=== PATIENT | female | born 1975 | race Caucasian/White ===

== ENCOUNTER → 2017-11-08 | Outpatient (CLI) | payer OTHER ==
[2017-11-08 11:02] LABS: BASOPHILS % (AUTO) 0.4 % (0.0-2.0); EOSINOPHILS % (AUTO) 0.6 % (0.0-4.0); HEMOGLOBIN 14.2 g/dL (12.0-16.0); LYMPHOCYTES # (AUTO) 2.1 K/uL (1.0-5.5); MEAN CORPUSCULAR HEMOGLOBIN 31 pg (27-31); MEAN CORPUSCULAR HGB CONC 33 % (32-36); MEAN CORPUSCULAR VOLUME 95 fL (79.0-98.0); MONOCYTES # (AUTO) 0.3 K/uL (0.0-1.0); MONOCYTES % (AUTO) 4.4 % (1.7-9.3); NEUTROPHILS # (AUTO) 4.7 K/uL (1.8-7.7); NEUTROPHILS % (AUTO) 65.6 % (40.0-70.0); PLATELET COUNT (AUTO) 261 K/uL (130-430); RED BLOOD CELL COUNT(AUTO) 4.52 MIL/uL (4.2-6.2); RED CELL DISTRIBUTION WIDTH 13.4 % (9.0-15.0); WHITE BLOOD COUNT (AUTO) 7.1 K/uL (4.8-10.8)
[2017-11-08 11:52] LABS: CALCIUM 9.6 mg/dL (8.4-11.0); CREATININE 0.86 mg/dL (0.55-1.30); POTASSIUM 3.9 mmol/L (3.5-5.1)
[2017-11-08 12:10] LABS: THYROID STIMULATING HORMONE 1.68 uIu/mL (0.36-3.74); TOTAL BILIRUBIN 0.5 mg/dL (0.0-1.0)
== END | disposition still patient (30) ==
LOC: SLB 10:26
PROVIDERS: ATTEND General Practice
DX: Z01.419 Encounter for gynecological examination (general) (routine) without abnormal findings (principal); R79.89 Other specified abnormal findings of blood chemistry
CPT/HCPCS: 36415; 80053; 80061; 82306; 84443-TC; 85025

== ENCOUNTER 2019-05-13 17:49 | Outpatient (CLI) | payer OTHER | END 2019-05-13 21:06 | disposition home or self-care (01) | LOC: SLB 17:49 | PROVIDERS: ATTEND Physician Assistant | DX: O26.21 Pregnancy care for patient with recurrent pregnancy loss, first trimester (principal); Z3A.00 Weeks of gestation of pregnancy not specified | CPT/HCPCS: 36415; 84144; 84702-TC ==

== ENCOUNTER 2019-05-15 17:21 | Outpatient (CLI) | payer OTHER | END 2019-05-16 18:04 | disposition home or self-care (01) | LOC: SLB 17:21 | PROVIDERS: ATTEND Specialist | DX: O26.21 Pregnancy care for patient with recurrent pregnancy loss, first trimester (principal); Z3A.00 Weeks of gestation of pregnancy not specified | CPT/HCPCS: 36415; 84144; 84702-TC ==

== ENCOUNTER 2019-05-25 16:22 | Outpatient (CLI) | payer OTHER | END 2019-05-25 21:09 | disposition home or self-care (01) | LOC: SLB 16:22 | PROVIDERS: ATTEND Specialist | DX: N92.6 Irregular menstruation, unspecified (principal) | CPT/HCPCS: 36415; 84144; 84702-TC ==

== ENCOUNTER 2019-05-27 15:56 | Outpatient (CLI) | payer OTHER | END 2019-05-27 20:53 | disposition home or self-care (01) | LOC: SLB 15:56 | PROVIDERS: ATTEND Specialist | DX: N92.6 Irregular menstruation, unspecified (principal) | CPT/HCPCS: 36415; 84144; 84702-TC ==

== ENCOUNTER 2019-10-12 15:32 | Outpatient (CLI) | payer OTHER | END 2019-10-13 20:16 | disposition home or self-care (01) | LOC: SMA 15:32 | PROVIDERS: ATTEND Specialist | DX: Z12.31 Encounter for screening mammogram for malignant neoplasm of breast (principal); N64.89 Other specified disorders of breast | CPT/HCPCS: 77067 ==

== ENCOUNTER 2022-04-17 13:13 | Outpatient (CLI) | payer OTHER | END 2022-04-17 19:03 | disposition home or self-care (01) | LOC: SMA 13:13 | DX: Z12.31 Encounter for screening mammogram for malignant neoplasm of breast (principal) | CPT/HCPCS: 77067 ==

== ENCOUNTER 2022-12-16 14:59 | Emergency (ER) | payer OTHER ==
[~2022-12-16] VITALS: Ht 167.6 cm; Wt 63.5 kg
[2022-12-16 15:07] VITALS: BP_SYST 131
[2022-12-16] MEDS ORDERED: IBUP-1969 PO (16:42)
[2022-12-16] MEDS ORDERED: SOM350 PO (16:42)
[2022-12-16 17:05] VITALS: BP_SYST 131
== END 2022-12-16 17:05 | disposition home or self-care (01) ==
LOC: SED 14:59
DX: S39.012A Strain of muscle, fascia and tendon of lower back, initial encounter (principal); S16.1XXA Strain of muscle, fascia and tendon at neck level, initial encounter; V49.9XXA Car occupant (driver) (passenger) injured in unspecified traffic accident, initial encounter; Y93.89 Activity, other specified; Y92.89 Other specified places as the place of occurrence of the external cause; Y99.8 Other external cause status
CPT/HCPCS: 72040-TC; 72100-TC; 81025; 99284

== ENCOUNTER 2023-10-06 13:00 | Inpatient (IN) | payer OTHER ==
[~2023-10-06] VITALS: Ht 162.6 cm; Wt 105.7 kg
[~2023-10-06 13:00] MED LIST: IBUP-1969 PO; SOM350 PO
[2023-10-06 13:21] VITALS: BP_SYST 121; PULSE 88; RESP 18; TEMP 97.6; O2SAT 97
[2023-10-06 14:21] LABS: BILIRUBIN,URINE NEGATIVE (NEGATIVE); BLOOD, URINE NEGATIVE (NEGATIVE); CLARITY/URINE CLEAR (CLEAR); COLOR,URINE YELLOW (YELLOW); GLUCOSE,URINE NEGATIVE (NEGATIVE); KETONES,URINE TRACE (NEGATIVE); LEUKOCYTE ESTERASE ,URINE NEGATIVE (NEGATIVE); NITRITE, URINE NEGATIVE (NEGATIVE); PROTEIN URINE NEGATIVE (NEGATIVE); UROBILINOGEN,URINE 0.2 (0.2-1.0)
[2023-10-06 14:59] LABS: BASOPHILS % (AUTO) 0.2 % (0.0-2.0); EOSINOPHILS % (AUTO) 0.4 % (0.0-4.0); HEMATOCRIT 39.9 % (36-48); HEMOGLOBIN 13.6 g/dL (12.0-16.0); LYMPHOCYTES # (AUTO) 1.9 K/uL (1.0-5.5); LYMPHOCYTES % (AUTO) 18.2 % (20.5-51.5); MEAN CORPUSCULAR HEMOGLOBIN 31 pg (27-31); MEAN CORPUSCULAR HGB CONC 34 % (32-36); MEAN CORPUSCULAR VOLUME 91 fL (79.0-98.0); MONOCYTES # (AUTO) 0.5 K/uL (0.0-1.0); MONOCYTES % (AUTO) 4.4 % (1.7-9.3); NEUTROPHILS # (AUTO) 8.1 K/uL (1.8-7.7); NEUTROPHILS % (AUTO) 76.8 % (40.0-70.0); PLATELET COUNT (AUTO) 340 K/uL (130-430); RED BLOOD CELL COUNT(AUTO) 4.37 MIL/uL (4.2-6.2); RED CELL DISTRIBUTION WIDTH 14.5 % (9.0-15.0); WHITE BLOOD COUNT (AUTO) 10.5 K/uL (4.8-10.8)
[2023-10-06] MEDS: NACL 0.9% 1,000 ML IV ONE (15:00)
[2023-10-06 15:05] LABS: CALCIUM 9.2 mg/dL (8.4-11.0); CREATININE 0.85 mg/dL (0.55-1.30); POTASSIUM 4.1 mmol/L (3.5-5.1); SERUM HCG (QUALITATIVE) NEGATIVE (NEGATIVE)
[2023-10-06 15:10] LABS: ALBUMIN 3.7 g/dL (3.4-4.8); BILIRUBIN,DIRECT 0.1 mg/dL (0.0-0.3); TOTAL BILIRUBIN 0.4 mg/dL (0.0-1.0); TOTAL PROTEIN, SERUM 7.5 g/dL (6.4-8.3)
[2023-10-06] MEDS: PANTOPRAZOLE SODIUM 40 MG TAB PO ONE (15:36)
[2023-10-06] MEDS ORDERED: MORPHINE 4 MG INJ. 4 MG/ML VIAL IVP PRN (17:45)
[2023-10-06] MEDS: NACL 0.9% 1,000 ML IV SCH (18:54)
[2023-10-06] MEDS: MORPHINE 4 MG INJ. 4 MG/ML VIAL IVP ONE (19:26)
[2023-10-06] MEDS: ONDANSETRON HCL 4 MG/2 ML VIAL IVP ONE (19:27)
[2023-10-06 20:00] VITALS: BP_SYST 125; PULSE 74; RESP 20; TEMP 97.9; O2SAT 96
[2023-10-07] VITALS: PULSE 73; RESP 20
[2023-10-07 04:00] VITALS: RESP 20; O2SAT 97
[2023-10-07 06:11] LABS: BASOPHILS % (AUTO) 0.4 % (0.0-2.0); EOSINOPHILS # (AUTO) 0.2 K/uL (0.0-0.4); EOSINOPHILS % (AUTO) 2.1 % (0.0-4.0); HEMOGLOBIN 11.7 g/dL (12.0-16.0); LYMPHOCYTES # (AUTO) 2.1 K/uL (1.0-5.5); LYMPHOCYTES % (AUTO) 29.5 % (20.5-51.5); MEAN CORPUSCULAR HEMOGLOBIN 31 pg (27-31); MEAN CORPUSCULAR HGB CONC 34 % (32-36); MEAN CORPUSCULAR VOLUME 92 fL (79.0-98.0); MONOCYTES # (AUTO) 0.5 K/uL (0.0-1.0); NEUTROPHILS # (AUTO) 4.3 K/uL (1.8-7.7); PLATELET COUNT (AUTO) 276 K/uL (130-430); RED CELL DISTRIBUTION WIDTH 14.5 % (9.0-15.0)
[2023-10-07 06:13] LABS: CALCIUM 8.3 mg/dL (8.4-11.0); CREATININE 0.69 mg/dL (0.55-1.30); POTASSIUM 3.7 mmol/L (3.5-5.1)
[2023-10-07 06:18] LABS: ALBUMIN 2.9 g/dL (3.4-4.8); TOTAL BILIRUBIN 0.5 mg/dL (0.0-1.0)
[2023-10-07 08:00] VITALS: BP_SYST 121; PULSE 73; RESP 16; TEMP 97.7; O2SAT 98
[2023-10-07] MEDS ORDERED: ONDANSETRON HCL 4 MG/2 ML VIAL IM PRN (10:00)
[2023-10-07] MEDS ORDERED: MORPHINE 2 MG/ML INJ. SYRINGE IVP PRN ×3 (10:00→12:15)
[2023-10-07 12:00] VITALS: BP_SYST 121; PULSE 72; RESP 16; TEMP 98.4; O2SAT 98
[2023-10-07] MEDS ORDERED: MAGNESIUM SULFATE 50 ML IV PRN (12:15)
[2023-10-07] MEDS ORDERED: LORazepam 2 MG/ML VIAL IVP PRN (12:15)
[2023-10-07] MEDS ORDERED: NALOXONE HCL 2 MG/2 ML SYR IVP PRN (12:15)
[2023-10-07] MEDS ORDERED: POTASSIUM CHLORIDE 40 MEQ, LIDOCAINE JECT 2% PF 100 MG 50 MG in NS 250 ML IV PRN (12:15)
[2023-10-07] MEDS ORDERED: ONDANSETRON HCL 4 MG/2 ML VIAL IVP PRN (12:15)
[2023-10-07 13:38] LABS: FREE T4 (FREE THYROXINE) 1.1 ng/dL (0.6-1.6); THYROID STIMULATING HORMONE 1.23 uIu/mL (0.34-4.82)
[2023-10-07 16:00] VITALS: BP_SYST 116; PULSE 76; RESP 16; TEMP 98.4; O2SAT 76
[2023-10-07 20:30] VITALS: BP_SYST 138; PULSE 79; RESP 18; TEMP 98.8; O2SAT 98
[2023-10-08 00:20] VITALS: BP_SYST 112; PULSE 74; RESP 18; TEMP 98.8; O2SAT 98
[2023-10-08 05:26] LABS: BASOPHILS % (AUTO) 0.5 % (0.0-2.0); EOSINOPHILS # (AUTO) 0.1 K/uL (0.0-0.4); EOSINOPHILS % (AUTO) 1.8 % (0.0-4.0); HEMATOCRIT 33.7 % (36-48); HEMOGLOBIN 11.4 g/dL (12.0-16.0); LYMPHOCYTES % (AUTO) 25.8 % (20.5-51.5); MEAN CORPUSCULAR HEMOGLOBIN 31 pg (27-31); MEAN CORPUSCULAR HGB CONC 34 % (32-36); MEAN CORPUSCULAR VOLUME 92 fL (79.0-98.0); MONOCYTES # (AUTO) 0.5 K/uL (0.0-1.0); MONOCYTES % (AUTO) 6.7 % (1.7-9.3); NEUTROPHILS # (AUTO) 5.1 K/uL (1.8-7.7); NEUTROPHILS % (AUTO) 65.2 % (40.0-70.0); PLATELET COUNT (AUTO) 253 K/uL (130-430); RED BLOOD CELL COUNT(AUTO) 3.66 MIL/uL (4.2-6.2); RED CELL DISTRIBUTION WIDTH 14.5 % (9.0-15.0); WHITE BLOOD COUNT (AUTO) 7.7 K/uL (4.8-10.8)
[2023-10-08 05:49] LABS: ALBUMIN 2.6 g/dL (3.4-4.8); CALCIUM 8.1 mg/dL (8.4-11.0); CREATININE 0.63 mg/dL (0.55-1.30); PHOSPHORUS 2.8 mg/dL (2.7-4.5); POTASSIUM 3.8 mmol/L (3.5-5.1); TOTAL BILIRUBIN 0.4 mg/dL (0.0-1.0); TOTAL PROTEIN, SERUM 5.8 g/dL (6.4-8.3)
[2023-10-08 08:00] VITALS: BP_SYST 122; PULSE 76; RESP 16; TEMP 98.6; O2SAT 99
[2023-10-08] MEDS: PANTOPRAZOLE SODIUM 40 MG/VIAL (PROTONIX) IVP SCH (10:26)
[2023-10-08 19:00] VITALS: BP_SYST 122; PULSE 76; RESP 16; TEMP 98.6; O2SAT 98
[2023-10-08 20:20] VITALS: BP_SYST 136; PULSE 82; RESP 18; TEMP 97.7; O2SAT 100
[2023-10-08 21:55] VITALS: O2SAT 100
[2023-10-09 00:20] VITALS: BP_SYST 120; PULSE 81; RESP 18; TEMP 97.6; O2SAT 98
[2023-10-09 05:37] LABS: BASOPHILS % (AUTO) 0.6 % (0.0-2.0); EOSINOPHILS # (AUTO) 0.2 K/uL (0.0-0.4); EOSINOPHILS % (AUTO) 2.5 % (0.0-4.0); HEMATOCRIT 32.5 % (36-48); LYMPHOCYTES # (AUTO) 2.4 K/uL (1.0-5.5); LYMPHOCYTES % (AUTO) 34.8 % (20.5-51.5); MEAN CORPUSCULAR HEMOGLOBIN 31 pg (27-31); MEAN CORPUSCULAR HGB CONC 34 % (32-36); MEAN CORPUSCULAR VOLUME 92 fL (79.0-98.0); MONOCYTES # (AUTO) 0.6 K/uL (0.0-1.0); MONOCYTES % (AUTO) 8.4 % (1.7-9.3); NEUTROPHILS # (AUTO) 3.6 K/uL (1.8-7.7); NEUTROPHILS % (AUTO) 53.7 % (40.0-70.0); PLATELET COUNT (AUTO) 256 K/uL (130-430); RED BLOOD CELL COUNT(AUTO) 3.55 MIL/uL (4.2-6.2); RED CELL DISTRIBUTION WIDTH 14.5 % (9.0-15.0); WHITE BLOOD COUNT (AUTO) 6.8 K/uL (4.8-10.8)
[2023-10-09 06:00] LABS: PROTHROMBIN TIME 10.4 SECS (9.5-12.5)
[2023-10-09 06:12] LABS: ALBUMIN 2.5 g/dL (3.4-4.8); CALCIUM 8.2 mg/dL (8.4-11.0); CREATININE 0.63 mg/dL (0.55-1.30); PHOSPHORUS 2.9 mg/dL (2.7-4.5); POTASSIUM 3.8 mmol/L (3.5-5.1); TOTAL BILIRUBIN 0.3 mg/dL (0.0-1.0); TOTAL PROTEIN, SERUM 5.7 g/dL (6.4-8.3)
[2023-10-09 08:08] VITALS: BP_SYST 115; PULSE 64; RESP 17; TEMP 98.4; O2SAT 100
[2023-10-09 09:22] VITALS: O2SAT 99
[2023-10-09 14:00] VITALS: BP_SYST 118; PULSE 68; RESP 18; TEMP 98.4; O2SAT 98
[2023-10-09] MEDS: MIDAZOLAM HCL 2 MG/2 ML VIAL (VERSED) ONE (14:59)
[2023-10-09] MEDS: HYDROmorphone 2 MG/ML VIAL ONE (15:00)
[2023-10-09] MEDS ORDERED: DEXAMETHASONE SOD PHOSPHATE 4 MG/ML VIAL ONE (15:10)
[2023-10-09] MEDS ORDERED: SUCCINYLCHOLINE CHLORIDE 20 MG/ML(QUELICIN) ONE (15:10)
[2023-10-09] MEDS ORDERED: NEOSTIGMINE METHYLSULFATE 1 MG/ML, 10 ML VIAL ONE (15:10)
[2023-10-09] MEDS ORDERED: BUPIVACAINE /PF 0.25% 30 ML VIAL INJ ONE (15:10)
[2023-10-09] MEDS ORDERED: ROCURONIUM BROMIDE 10 MG/ML (ZEMURON) ONE (15:10)
[2023-10-09] MEDS ORDERED: PROPOFOL 200MG/ 20ML VIAL (DIPRIVAN) IV ONE (15:10)
[2023-10-09] MEDS ORDERED: SEVOFLURANE 15 MIN GAS INH ONE (15:10)
[2023-10-09] MEDS ORDERED: GLYCOPYRROLATE 0.2 MG/ML VIAL ONE (15:10)
[2023-10-09] MEDS ORDERED: KETOROLAC TROMETHAMINE 30 MG VIAL ONE (15:10)
[2023-10-09] MEDS ORDERED: ONDANSETRON HCL 4 MG/2 ML VIAL ONE (15:10)
[2023-10-09] MEDS ORDERED: NALOXONE HCL 0.4 MG/ML AMP (NARCAN) IVP PRN (16:15)
[2023-10-09] MEDS ORDERED: MORPHINE 4 MG INJ. 4 MG/ML VIAL IVP PRN ×2 (16:15)
[2023-10-09] MEDS: METOCLOPRAMIDE HCL 10 MG/2 ML VIAL ONE (16:15)
[2023-10-09] MEDS ORDERED: HYDROmorphone 1 MG/ML INJ. CARTRIDGE IVP PRN (16:15)
[2023-10-09] MEDS ORDERED: ONDANSETRON HCL 4 MG/2 ML VIAL IVP PRN (16:15)
[2023-10-09] MEDS: METOCLOPRAMIDE HCL 10 MG/2 ML VIAL IVP PRN (16:15)
[2023-10-09 20:25] VITALS: BP_SYST 125; PULSE 75; RESP 18; TEMP 96.6; O2SAT 96
[2023-10-10 00:15] VITALS: BP_SYST 114; PULSE 63; RESP 15; TEMP 97.8; O2SAT 98
[2023-10-10 07:29] LABS: BASOPHILS % (AUTO) 0.3 % (0.0-2.0); EOSINOPHILS % (AUTO) 0.1 % (0.0-4.0); HEMATOCRIT 37.2 % (36-48); HEMOGLOBIN 12.4 g/dL (12.0-16.0); LYMPHOCYTES # (AUTO) 1.6 K/uL (1.0-5.5); LYMPHOCYTES % (AUTO) 18.3 % (20.5-51.5); MEAN CORPUSCULAR HEMOGLOBIN 31 pg (27-31); MEAN CORPUSCULAR HGB CONC 33 % (32-36); MEAN CORPUSCULAR VOLUME 92 fL (79.0-98.0); MONOCYTES # (AUTO) 0.5 K/uL (0.0-1.0); MONOCYTES % (AUTO) 5.8 % (1.7-9.3); NEUTROPHILS # (AUTO) 6.8 K/uL (1.8-7.7); NEUTROPHILS % (AUTO) 75.5 % (40.0-70.0); PLATELET COUNT (AUTO) 289 K/uL (130-430); RED BLOOD CELL COUNT(AUTO) 4.06 MIL/uL (4.2-6.2)
[2023-10-10 07:43] LABS: ALBUMIN 2.9 g/dL (3.4-4.8); CREATININE 0.63 mg/dL (0.55-1.30); PHOSPHORUS 3.3 mg/dL (2.7-4.5); POTASSIUM 4.1 mmol/L (3.5-5.1); TOTAL BILIRUBIN 0.2 mg/dL (0.0-1.0); TOTAL PROTEIN, SERUM 6.7 g/dL (6.4-8.3)
[2023-10-10 09:30] VITALS: BP_SYST 120; PULSE 68; RESP 17; TEMP 98; O2SAT 99
[2023-10-10 10:24] VITALS: O2SAT 96
[2023-10-10] MEDS ORDERED: IBUP-1969 PO (11:35)
[2023-10-10 13:03] VITALS: BP_SYST 128; PULSE 80; RESP 18; TEMP 98; O2SAT 99
[2023-10-10] MEDS: ACETAMINOPHEN 500 MG TABLET PO ONE (13:26)
== END 2023-10-10 14:30 | disposition home or self-care (01) | DRG 417 ==
LOC: SED 13:00 → STU 17:43 → SMU 10-08 00:19
PROC: 0FT44ZZ Resection of Gallbladder, Percutaneous Endoscopic Approach (ICD-10-PCS; principal; 2023-10-09 15:09)
DX: K85.10 Biliary acute pancreatitis without necrosis or infection (principal); E43 Unspecified severe protein-calorie malnutrition; Z68.41 Body mass index [BMI] 40.0-44.9, adult; D64.9 Anemia, unspecified; E66.9 Obesity, unspecified; R74.01 Elevation of levels of liver transaminase levels; E86.0 Dehydration; K80.20 Calculus of gallbladder without cholecystitis without obstruction; Z79.1 Long term (current) use of non-steroidal anti-inflammatories (NSAID); Z79.899 Other long term (current) drug therapy
CPT/HCPCS: 36415; 76705; 80048; 80053; 80076; 81001; 81003; 83037; 83690; 83735; 83880; 84100; 84439; 84443; 84478; 84703; 85025; 85610; 85730; 86886; 86900; 86901; 87081; 88304; 99285; C1727; C9113; G0378; J0330; J1100; J1170; J1885; J2405; J2704; J2710; J2765; J3465; J3490